=== PATIENT | female | born 1950 | race Caucasian/White ===

== ENCOUNTER 2016-11-13 10:41 | Inpatient (IN) | payer MEDICARE ==
[~2016-11-13] VITALS: Ht 167.6 cm; Wt 73.9 kg
--- NOTE | 2016-11-13 10:45 | NUR ---
PT CLEMENTE FROM HOME FOR GENERALIZED WEAKNESS X TODAY UPON WAKING UP. PT [id number]. SISTER AT BS. PER PT SHE FELT LIKE SHE WAS GOING TO PASS OUT. DENIES KO. VSS. NOTED GENERALIZED SHAKING. AT BS FOR EVAL. 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 SAFETY AND COMFORT MEASURES PROVIDED. WILL MONITOR.
[2016-11-13] MEDS ORDERED: IV NS 0.9% 500 ML IV ONE (10:52)
[2016-11-13] MEDS ORDERED: IV SET PRIMARY PUMP SET 1 EA INFUS.SET MC ONE ×2 (10:52→13:54)
[2016-11-13] MEDS ORDERED: IV NS 0.9% 500 ML BAG IV ONE (11:00)
--- NOTE | 2016-11-13 11:00 | NUR ---
BLOOD DRAWN, SENT.
[2016-11-13 11:01] LABS: BASOPHILS % (AUTO) 0.7 % (0.0-2.0); EOSINOPHILS # (AUTO) 0.1 /CMM (0.0-0.7); EOSINOPHILS % (AUTO) 1.4 % (0.0-6.0); HEMATOCRIT 40 % (33-45); HEMOGLOBIN 13.5 g/dL (11.5-14.8); LYMPHOCYTES # (AUTO) 1.8 /CMM (0.8-4.8); MEAN CORPUSCULAR HEMOGLOBIN 30 PG (26.0-33.0); MEAN CORPUSCULAR HGB CONC 34 g/dl (31.0-36.0); MEAN CORPUSCULAR VOLUME 89 fL (82-100); MONOCYTES # (AUTO) 0.4 /CMM (0.1-1.30); MONOCYTES % (AUTO) 7.8 % (2.0-12.0); NEUTROPHILS # (AUTO) 2.7 /CMM (1.8-8.9); NEUTROPHILS % (AUTO) 55.1 % (43.0-81.0); PLATELET COUNT (AUTO) 270 /CMM (150-450); RDW COEFFICIENT OF VARIATION 13.2 (11.5-15.0); RED BLOOD CELL COUNT(AUTO) 4.49 MIL/uL (4.0-5.2)
--- NOTE | 2016-11-13 11:05 | NUR ---
PT MEDICATED ORDERED.
[2016-11-13 11:09] LABS: CALCIUM, SERUM 8.7 mg/dL (8.5-10.1); CARBON DIOXIDE 26 mmol/L (21-32); CHLORIDE 106 mmol/L (98-107); CREATININE 0.9 mg/dL (0.6-1.3); GFR 62 mL/min (>60); GLUCOSE 136 mg/dL (74-106); POTASSIUM 4.2 mmol/L (3.5-5.1); SODIUM SERUM 142 mmol/L (136-145); UREA NITROGEN, BLOOD 19 mg/dL (7-18)
--- NOTE | 2016-11-13 11:10 | NUR ---
URINE SAMPLE OBTAINED, SENT.
[2016-11-13 11:15] LABS: ALANINE AMINOTRANSFERASE 15 U/L (12-78); ALBUMIN 3.7 g/dL (3.4-5.0); ALKALINE PHOSPHATASE 82 U/L (46-116); ASPARTATE AMINOTRANSFERASE 17 U/L (15-37); BILIRUBIN,DIRECT 0.1 mg/dL (0.0-0.2); BILIRUBIN,TOTAL 0.2 mg/dL (0.2-1.0); TOTAL PROTEIN, SERUM 6.9 g/dL (6.4-8.2)
[2016-11-13 11:16] LABS: APPEARANCE,URINE Clear (CLEAR); BILIRUBIN,URINE Negative (NEGATIVE); BLOOD, URINE Trace-intact Ery/uL (NEGATIVE); COLOR,URINE Yellow (YELLOW); KETONES,URINE Negative (NEGATIVE); LEUKOCYTE ESTERASE ,URINE Trace (NEGATIVE); NITRITE, URINE Negative (NEGATIVE); PROTEIN,URINE Negative (NEGATIVE); UGLUCOSE Negative (NEGATIVE); UROBILINOGEN,URINE 0.2 EU/dL (0.2)
--- NOTE | 2016-11-13 11:16 | NUR ---
PT TAKEN TO CT.
[2016-11-13 11:17] LABS: TROPONIN I < 0.017 ng/mL (0.00-0.056)
[2016-11-13 11:25] LABS: LACTIC ACID 1.6 mmol/L (0.4-2.0)
[2016-11-13 11:29] LABS: ADD URINE CULTURE NO; BACTERIA,URINE Few /HPF (None Seen); SQUAMOUS EPITHELIAL CELL,UR Few /HPF (None Seen)
[2016-11-13 11:30] LABS: INR 0.99 (0.87-1.13); PROTHROMBIN TIME 10.3 SECS (9.5-12.7)
--- NOTE | 2016-11-13 11:41 | NUR ---
CALLED NURSING SUP. FOR MS BED
--- NOTE | 2016-11-13 11:45 | NUR ---
CALLED NUTRITION FOR COFFEE FOR PT PER MECHELLE'S REQUEST
--- NOTE | 2016-11-13 11:45 | NUR ---
[facility] PAGED, DR.VU KUMAR FORGEMAN HELPER
[2016-11-13 12:00] VITALS: BP_SYST 114; BP_SYST 116; BP_DIAS 64; BP_DIAS 69
--- NOTE | 2016-11-13 12:15 | NUR ---
REPORT GIVEN TO ANTWAN RN FOR MS ROOM [id number]
--- NOTE | 2016-11-13 12:15 | NUR ---
RN OPENING NOTES RECEIVED PT. FROM ER IN STABLE CONDITION. PT. WAS SAFELY TRANSPORTED TO THE BED. NO PAIN, SOB OR DISTRESS REPORTED BY PT. OR NOTED. WILL CONTINUE TO MONITOR AND BEGIN ADMISSION PROCESS.
[2016-11-13] MEDS ORDERED: ACETAMINOPHEN 325 MG TABLET PO PRN (12:30)
[2016-11-13] MEDS ORDERED: HYDROCODONE/APAP 5/325MG 1 EACH TABLET PO PRN (12:30)
[2016-11-13] MEDS ORDERED: MAG HYDROX/AL HYDROX/SIMETH 30 ML UDC PO PRN (12:30)
[2016-11-13] MEDS ORDERED: MAGNESIUM HYDROXIDE 30 ML UDC PO PRN (12:30)
[2016-11-13] MEDS ORDERED: ONDANSETRON HCL/PF 4 MG/2 ML VIAL IVP PRN (12:30)
[2016-11-13] MEDS ORDERED: ZOLPIDEM TARTRATE 5 MG TABLET PO PRN (12:30)
[2016-11-13] MEDS ORDERED: Z GUARD REMEDY 2 OZ OINT TP PRN (12:30)
[2016-11-13 12:35] VITALS: BP 114/69
[2016-11-13] MEDS ORDERED: SECONDARY IV SET 1 EA INFUS.SET MC ONE (13:54)
[2016-11-13] MEDS: IV NS 0.9% 1,000 ML IV PRN (14:39)
[2016-11-13 16:00] VITALS: BP 116/64
--- NOTE | 2016-11-13 19:27 | NUR ---
RN CLOSING NOTES PT. IN STABLE CONDITION LYING IN BED. A/O X3. BED ALARM IN LOW POSITION, SIDE RAILS UP X2, CALL LIGHT WITHIN REACH. IV RUNNING NS @ 75 ML/HR. IV INTACT AND NO SIGNS OF INFILTRATION ASSESSED. PT. REPORTS NO PAIN AND NO DISTRESS. WILL ENDORSE TO THE [employer] TAXONOMIST NURSE FOR ALEJANDRINA
--- NOTE | 2016-11-13 19:30 | NUR ---
MS RN INITIAL NOTE RECEIVED REPORT FROM DAY SHIFT RN. PT IN SITTING AT SIDE OF BED. A/A/O X4. LUNG SOUNDS CLEAR IN ALL BASES. BOWEL SOUNDS PRESENT. IV PATENT AND INTACT WITH NS @ 75ML/HR RUNNING. PULSES PRESENT IN ALL EXTREMITIES. BED IN LOW LOCKED POSITION. CALL LIGHT WITHIN REACH. WILL CONTINUE TO MONITOR.
[2016-11-13 20:18] VITALS: BP 120/65
[2016-11-14] MEDS: IV NS 0.9% 1,000 ML IV PRN (04:57)
--- NOTE | 2016-11-14 07:15 | NUR ---
MS RN INITIAL NOTES RECEIVED PATIENT IN BED, AWAKE. A/O X4. BREATHING EVEN AND NON LABORED, NO SOB NOTED. IV IN RIGHT WRIST G18 PATENT AND INTACT, IVF NS INFUSING AT 75ML/HR. APPEARS COMFORTABLY RESTING IN BED, NO C/O PAIN OR ANY DISCOMFORT. CALL LIGHT WITHIN REACH. WILL CONT TO MONITOR.
[2016-11-14 07:30] LABS: BASOPHILS % (AUTO) 0.3 % (0.0-2.0); EOSINOPHILS # (AUTO) 0.1 /CMM (0.0-0.7); EOSINOPHILS % (AUTO) 2.3 % (0.0-6.0); HEMATOCRIT 38 % (33-45); HEMOGLOBIN 12.6 g/dL (11.5-14.8); LYMPHOCYTES # (AUTO) 2.6 /CMM (0.8-4.8); LYMPHOCYTES % (AUTO) 43.8 % (20.0-44.0); MEAN CORPUSCULAR HEMOGLOBIN 30 PG (26.0-33.0); MEAN CORPUSCULAR HGB CONC 34 g/dl (31.0-36.0); MEAN CORPUSCULAR VOLUME 91 fL (82-100); MONOCYTES # (AUTO) 0.6 /CMM (0.1-1.30); MONOCYTES % (AUTO) 9.4 % (2.0-12.0); NEUTROPHILS # (AUTO) 2.7 /CMM (1.8-8.9); NEUTROPHILS % (AUTO) 44.2 % (43.0-81.0); PLATELET COUNT (AUTO) 231 /CMM (150-450); RDW COEFFICIENT OF VARIATION 14.2 (11.5-15.0); RED BLOOD CELL COUNT(AUTO) 4.14 MIL/uL (4.0-5.2); WHITE BLOOD COUNT (AUTO) 6.1 K/uL (4.3-11.0)
[2016-11-14] MEDS ORDERED: PANTOPRAZOLE 40 MG TABLET.DR PO SCH (07:30)
--- NOTE | 2016-11-14 07:53 | NUR ---
PATIENT IS SEEN BY DR. KUMAR TODAY. PER MD POSSIBLE DISCHARGE AFTER SEEN BY DR. MCKENZIE. PATIENT IS AWARE.
[2016-11-14 08:00] VITALS: BP 123/68
[2016-11-14 08:07] LABS: ALBUMIN 3.3 g/dL (3.4-5.0); BILIRUBIN,TOTAL 0.2 mg/dL (0.2-1.0); CALCIUM, SERUM 8.9 mg/dL (8.5-10.1); CREATININE 0.7 mg/dL (0.6-1.3); MAGNESIUM 1.9 mg/dL (1.8-2.4); POTASSIUM 4.1 mmol/L (3.5-5.1); TOTAL PROTEIN, SERUM 6.4 g/dL (6.4-8.2)
[2016-11-14 08:10] LABS: THYROID STIMULATING HORMONE 0.364 uIU/mL (0.358-3.74)
--- NOTE | 2016-11-14 11:13 | NUR ---
PATIENT IS SEEN BY PT TODAY, PARTICIPATED WELL WITH NO C/O PAIN OR ANY DISCOMFORT.
--- NOTE | 2016-11-14 11:20 | NUR ---
PATIENT IS SEEN BY DR. MCKENZIE/NEURO, PER MD PATIENT IS CLEARED FOR DISCHARGE HOME.
--- NOTE | 2016-11-14 11:39 | NUR ---
REVIEWED FLU AND PNA VACCINE, PER PATIENT SHE RECEIVED BOTH VACCINE THE SAME MONTH LAST YEAR MAY 2016. UPDATE VACCINATIONS STATUS.
--- NOTE | 2016-11-14 11:47 | NUR ---
PATIENT TO BE DISCHARGED TODAY ORDERED. PATIENT IS AWARE.
--- NOTE | 2016-11-14 13:45 | NUR ---
MS RN CLOSING NOTES PATIENT HAS BEEN CLEARED FOR DISCHARGE HOME BY MD. V/S REMAINS STABLE, NO C/O PAIN OR ANY DISCOMFORT. SKIN INTACT. DISCHARGE INSTRUCTION GIVEN TO THE PATIENT, VERBALIZED UNDERSTANDING. EDUCATE PATIENT RE: NEW MEDICATION, BENEFITS, S/S OF ADVERSE REACTION. PRESCRIPTION GIVEN TO THE PATIENT. IV IN RIGHT WRIST REMOVED, GAUZE APPLIED, NO BLEEDING NOTED. BELONGINGS CHECKED AND SEND WITH THE PATIENT UPON DISCHARGE. PATIENT LEFT HOSP IN STABLE CONDITION VIA PRIVATE CAR, ACCOMPANIED BY SISTER-JOSE.
== END 2016-11-14 15:11 | disposition home or self-care (01) | DRG 948 ==
LOC: ER 10:43 → MED 12:18
PROVIDERS: ADMIT Family Medicine; ATTEND Family Medicine
DX: R53.1 Weakness (principal); Z87.891 Personal history of nicotine dependence; J44.9 Chronic obstructive pulmonary disease, unspecified; R42 Dizziness and giddiness; T50.995A Adverse effect of other drugs, medicaments and biological substances, initial encounter
CPT/HCPCS: 36415; 70450-TC; 71010-TC; 80048-TC; 80053-TC; 80076-TC; 81000-TC; 83605-TC; 83735-TC; 84100-TC; 84443-TC; 84484-TC; 85025-TC; 85730-TC; 86850-TC; 87040-TC; 87081-TC; 97001-TC; A4606; J7030; J7040; Z7610